=== PATIENT | female | born 1970 | race American Indian/Alaskan Native ===

== ENCOUNTER 2019-01-06 07:56 | Emergency (ER) | payer BC, OTHER ==
--- NOTE | 2019-01-06 08:31 | Emergency Department Report ---
ED General Adult HPI - General Chief complaint: Syncope Stated complaint: DIZZINESS,TINGLING IN HANDS AND FEET Time Seen by Provider: 01/06/19 08:15 Source: patient, family, EMS (ems notes not available at time of chart dictation), RN notes reviewed, old records reviewed Mode of arrival: Stretcher Limitations: No Limitations - History of Present Illness Initial comments: This is a 48-year-old female. The patient is not known to this provider previou heidi. The patient typically follows with the [facility]. She is not at this time. She has a history of anxiety, polyarthritis, hypertension. Also has a history of narcotic dependence and benzodiazepine dependence. Patient presents to the ER today with a complaint of generalized weakness, polyarthritis, myalgias, decreased appetite, anxiety, heart racing, malaise, fatigue, and unprovoked loss of consciousness today/syncope. Patient indicates no DVT or pulmonary embolism risk factors. She reports that she is not really eating or drinking that much. She landed on her face. Her symptoms are constant, does not radiate anywhere, increased with palpation and decreased with rest. Apparently, as per family, patient recently at [place] for polysubstance detox, and as per family, the patient terminated her elective/voluntary detox early. The patient is not homicidal or suicidal. She has no urinary symptoms. She has no abdominal pain, there is no chest pain, there is no sudden or thunderclap headache preceding the event. -: Gradual, Sudden Location: back, left, right, upper extremity, lower extremity Severity scale (0 -10): 0 Quality: aching Consistency: intermittent Improves with: rest Worsens with: movement - Related Data Home Medications Medication Instructions Recorded Confirmed Last Taken Cholecalciferol (Vitamin D3) 2,000 unit PO QDAY 01/06/19 01/06/19 01/05/19 00:00 [Vitamin D3 2,000 UNIT CHEW TAB] Folic Acid [Folvite] 1 mg PO QDAY 01/06/19 01/06/19 01/05/19 00:00 Olmesartan (Nf) [Benicar (Nf)] 20 mg PO QDAY 01/06/19 01/06/19 01/05/19 00:00 Sertraline [Zoloft] 25 mg PO QDAY 07/0501/06/19 01/05/19 00:00 busPIRone [Buspar] 15 mg PO TID 01/06/19 01/06/19 01/05/19 00:00 predniSONE [Deltasone] 5 mg PO QDAY 01/06/19 01/06/19 01/05/19 00:00 valACYclovir [Valtrex] 500 mg PO QDAY 01/06/19 01/06/19 01/05/19 00:00 Allergies Allergy/AdvReac Type Severity Reaction Status Date / Time acetaminophen Allergy Unknown Verified 01/06/19 09:44 [From Darvocet-N] ketorolac tromethamine Allergy Unknown Verified 01/06/19 09:44 [From Toradol] morphine Allergy Unknown Verified 01/06/19 09:44 propoxyphene napsylate Allergy Unknown Verified 01/06/19 09:44 [From Darvocet-N] ED Review of Systems ROS: Stated complaint: DIZZINESS,TINGLING IN HANDS AND FEET Other details as noted in HPI Constitutional: malaise, weakness Eyes: denies: eye discharge ENT: denies: epistaxis Respiratory: denies: cough Cardiovascular: palpitations, syncope Gastrointestinal: denies: vomiting Genitourinary: denies: dysuria Musculoskeletal: arthralgia, myalgia Skin: denies: lesions Neurological: weakness Psychiatric: anxiety ED Past Medical Hx - Past Medical History Previous Medical History?: Yes Hx Hypertension: Yes Hx Arthritis: Yes Hx Psychiatric Treatment: Yes (anxiety) - Surgical History Past Surgical History?: Yes Additional Surgical History: partial hysterectomyv - Social History Smoking Status: Never Smoker Substance Use Type: Alcohol, Prescribed - Medications Home Medications: Home Medications Medication Instructions Recorded Confirmed Last Taken Type Cholecalciferol (Vitamin D3) 2,000 unit PO QDAY 01/06/19 01/06/19 01/05/19 00:00 History [Vitamin D3 2,000 UNIT CHEW TAB] Folic Acid [Folvite] 1 mg PO QDAY 01/06/19 01/06/19 01/05/19 00:00 History Olmesartan (Nf) [Benicar (Nf)] 20 mg PO QDAY 01/06/19 01/06/19 01/05/19 00:00 History Sertraline [Zoloft] 25 mg PO QDAY 07/0501/06/19 01/05/19 00:00 History busPIRone [Buspar] 15 mg PO TID 01/06/19 01/06/19 01/05/19 00:00 History predniSONE [Deltasone] 5 mg PO QDAY 01/06/19 01/06/19 01/05/19 00:00 History valACYclovir [Valtrex] 500 mg PO QDAY 01/06/19 01/06/19 01/05/19 00:00 History ED Physical Exam - General Limitations: No Limitations General appearance: alert, anxious - Head Head exam: Present: normocephalic, other (there is right forehead ecchymosis. There is right-sided supraorbital ecchymosis.) - Eye Eye exam: Present: normal appearance, PERRL, EOMI, other (visual acuity intact to finger counting, color perception, reading at a close distance). Absent: nystagmus - ENT ENT exam: Present: normal exam, normal orophraynx, mucous membranes moist, TM's normal bilaterally, normal external ear exam - Neck Neck exam: Present: normal inspection, full ROM. Absent: tenderness, meningismus - Respiratory Respiratory exam: Present: normal lung sounds bilaterally. Absent: respiratory distress - Cardiovascular Cardiovascular Exam: Present: regular rate, normal rhythm, normal heart sounds. Absent: bradycardia, tachycardia, irregular rhythm, systolic murmur, diastolic murmur, rubs, gallop - GI/Abdominal GI/Abdominal exam: Present: soft. Absent: distended, tenderness, guarding, rebound, rigid, pulsatile mass - Extremities Exam Extremities exam: Present: normal inspection, full ROM, other (2+ pulses noted in the bilateral upper, lower extremities. Compartments soft. No long bony tenderness. The pelvis is stable.). Absent: pedal edema, calf tenderness - Back Exam Back exam: Present: normal inspection, full ROM. Absent: CVA tenderness (R), CVA tenderness (L), paraspinal tenderness, vertebral tenderness - Neurological Exam Neurological exam: Present: alert, oriented X3, normal gait, other (Extraocular movements intact. Tongue midline. No facial droop. Facial sensation intact to light touch in the V1, V2, V3 distribution bilaterally. 5 and 5 strength in 4 extremities.. Sensation is intact to light touch in 4 extremities.). Absent: motor sensory deficit - Psychiatric Psychiatric exam: Present: anxious - Skin Skin exam: Present: warm, ecchymosis ED Course Vital Signs 01/06/19 01/06/19 01/06/19 07:58 08:00 08:14 Temperature 98.7 F Pulse Rate 83 81 Respiratory 15 15 15 Rate Blood Pressure 149/92 149/92 O2 Sat by Pulse 99 100 99 Oximetry 01/06/19 09:00 Temperature Pulse Rate 83 Respiratory 10 L Rate Blood Pressure 129/76 O2 Sat by Pulse 97 Oximetry - Reevaluation(s) Reevaluation #1: 01/06/19 08:31 ga dining room attendant cafeteria aware Filled ID Written Drug QTY Days Prescriber Rx # Pharmacy * Refills Daily Dose Pymt Type [facility] 11/14/2018 2 09/13/2018 CLONAZEPAM 0.5 MG TABLET 30.0 30 DEVI THO [id number] [facility] ([id number]) 2 [facility] [place] 10/13/2018 2 09/13/2018 CLONAZEPAM 0.5 MG TABLET 30.0 30 DEVI THO [phone] [facility] ([id number]) 1 [facility] [place] 09/13/2018 2 09/13/2018 CLONAZEPAM 0.5 MG TABLET 30.0 30 DEVI THO [id number] [facility] ([id number]) 0 [facility] [place] 08/22/2018 1 08/22/2018 HYDROCODONE-ACETAMIN 10-325 MG 60.0 30 ME ЕКАТЕРИНА [id number] [facility] ([id number]) 0 20.0 MME [facility] [place] 08/11/2018 1 08/11/2018 CLONAZEPAM 0.5 MG TABLET 15.0 15 [place] MAT [id number] [facility] ([id number]) 0 [facility] [place] 07/20/2018 1 07/20/2018 HYDROCODONE-ACETAMIN 10-325 MG 60.0 30 ME ЕКАТЕРИНА [id number] [facility] ([id number]) 0 20.0 MME [facility] [place] 07/12/2018 1 06/15/2018 CLONAZEPAM 1 MG TABLET 30.0 30 DW OWE [id number] [facility] ([id number]) 0 [facility] [place] 06/24/2018 2 06/24/2018 BELBUCA 150 MCG FILM 60.0 30 [place] GAR [id number] [facility] [place] ([id number]) 0 0.3 mg Comm Ins 06/24/2018 2 06/24/2018 HYDROCODONE-ACETAMIN 10-325 MG 60.0 30 [place] GAR [id number] [facility] [place] ([id number]) 0 20.0 MME Comm Ins [place] ED Medical Decision Making - Lab Data Result diagrams: 01/06/19 08:16 01/06/19 08:16 Vital Signs 01/06/19 01/06/19 01/06/19 07:58 08:00 08:14 Temperature 98.7 F Pulse Rate 83 81 Respiratory 15 15 15 Rate Blood Pressure 149/92 149/92 O2 Sat by Pulse 99 100 99 Oximetry 01/06/19 09:00 Temperature Pulse Rate 83 Respiratory 10 L Rate Blood Pressure 129/76 O2 Sat by Pulse 97 Oximetry Lab Results 01/06/19 01/06/19 01/06/19 Range/Units 08:16 08:16 08:16 WBC 10.3 (4.5-11.0) K/mm3 RBC 4.19 (3.65-5.03) M/mm3 Hgb 13.6 (10.1-14.3) gm/dl Hct 39.7 (30.3-42.9) % MCV 95 (79-97) fl MCH 32 (28-32) pg MCHC 34 (30-34) % RDW 13.0 L (13.2-15.2) % Plt Count 256 (140-440) K/mm3 Lymph % (Auto) 15.4 (13.4-35.0) % [place] % (Auto) 10.3 H (0.0-7.3) % Eos % (Auto) 0.1 (0.0-4.3) % Baso % (Auto) 0.7 (0.0-1.8) % Lymph # 1.6 (1.2-5.4) K/mm3 [place] # 1.1 H (0.0-0.8) K/mm3 Eos # 0.0 (0.0-0.4) K/mm3 Baso # 0.1 (0.0-0.1) K/mm3 Seg Neutrophils % 73.5 H (40.0-70.0) % Seg Neutrophils # 7.6 (1.8-7.7) K/mm3 PT 12.7 (12.2-14.9) Sec. INR 0.98 (0.87-1.13) APTT 22.5 L (24.2-36.6) Sec. Sodium 142 (137-145) mmol/L Potassium 3.4 L (3.6-5.0) mmol/L Chloride 102.2 (98-107) mmol/L Carbon Dioxide 26 (22-30) mmol/L Anion Gap 17 mmol/L BUN 7 (7-17) mg/dL Creatinine 1.0 (0.7-1.2) mg/dL Estimated GFR > 60 ml/min BUN/Creatinine Ratio 7 % Glucose 93 (65-100) mg/dL Calcium 9.7 (8.4-10.2) mg/dL Magnesium 2.20 (1.7-2.3) mg/dL TSH (0.270-4.200) mlU/mL Salicylates (2.8-20.0) mg/dL Acetaminophen (10.0-30.0) ug/mL Plasma/Serum Alcohol (0-0.07) % 01/06/19 01/06/19 01/06/19 Range/Units 08:16 09:55 09:55 WBC (4.5-11.0) K/mm3 RBC (3.65-5.03) M/mm3 Hgb (10.1-14.3) gm/dl Hct (30.3-42.9) % MCV (79-97) fl MCH (28-32) pg MCHC (30-34) % RDW (13.2-15.2) % Plt Count (140-440) K/mm3 Lymph % (Auto) (13.4-35.0) % [place] % (Auto) (0.0-7.3) % Eos % (Auto) (0.0-4.3) % Baso % (Auto) (0.0-1.8) % Lymph # (1.2-5.4) K/mm3 [place] # (0.0-0.8) K/mm3 Eos # (0.0-0.4) K/mm3 Baso # (0.0-0.1) K/mm3 Seg Neutrophils % (40.0-70.0) % Seg Neutrophils # (1.8-7.7) K/mm3 PT (12.2-14.9) Sec. INR (0.87-1.13) APTT (24.2-36.6) Sec. Sodium (137-145) mmol/L Potassium (3.6-5.0) mmol/L Chloride (98-107) mmol/L Carbon Dioxide (22-30) mmol/L Anion Gap mmol/L BUN (7-17) mg/dL Creatinine (0.7-1.2) mg/dL Estimated GFR ml/min BUN/Creatinine Ratio % Glucose (65-100) mg/dL Calcium (8.4-10.2) mg/dL Magnesium (1.7-2.3) mg/dL TSH 2.540 (0.270-4.200) mlU/mL Salicylates 0.4 L (2.8-20.0) mg/dL Acetaminophen < 5.0 L (10.0-30.0) ug/mL Plasma/Serum Alcohol (0-0.07) % 01/06/19 Range/Units 09:55 WBC (4.5-11.0) K/mm3 RBC (3.65-5.03) M/mm3 Hgb (10.1-14.3) gm/dl Hct (30.3-42.9) % MCV (79-97) fl MCH (28-32) pg MCHC (30-34) % RDW (13.2-15.2) % Plt Count (140-440) K/mm3 Lymph % (Auto) (13.4-35.0) % [place] % (Auto) (0.0-7.3) % Eos % (Auto) (0.0-4.3) % Baso % (Auto) (0.0-1.8) % Lymph # (1.2-5.4) K/mm3 [place] # (0.0-0.8) K/mm3 Eos # (0.0-0.4) K/mm3 Baso # (0.0-0.1) K/mm3 Seg Neutrophils % (40.0-70.0) % Seg Neutrophils # (1.8-7.7) K/mm3 PT (12.2-14.9) Sec. INR (0.87-1.13) APTT (24.2-36.6) Sec. Sodium (137-145) mmol/L Potassium (3.6-5.0) mmol/L Chloride (98-107) mmol/L Carbon Dioxide (22-30) mmol/L Anion Gap mmol/L BUN (7-17) mg/dL Creatinine (0.7-1.2) mg/dL Estimated GFR ml/min BUN/Creatinine Ratio % Glucose (65-100) mg/dL Calcium (8.4-10.2) mg/dL Magnesium (1.7-2.3) mg/dL TSH (0.270-4.200) mlU/mL Salicylates (2.8-20.0) mg/dL Acetaminophen (10.0-30.0) ug/mL Plasma/Serum Alcohol < 0.01 (0-0.07) % - EKG Data -: EKG Interpreted by Ks EKG shows normal: sinus rhythm Rate: normal - EKG Data When compared to previous EKG there are: previous EKG unavailable 01/06/19 11:05 EKG #1 shows a sinus rhythm, 84 bpm, low voltage, QTC 466 ms, motion artifact, this is an abnormal EKG, EKG is not consistent with an ST elevation myocardial infarction, EKG #2 shows sinus, 83 bpm, borderline leftward axis, low voltage, QTC prolonged, not having chest pain, the EKG is not consistent with ST elevation myocardial infarction. - Radiology Data Radiology results: pending, report reviewed, image reviewed Noncontrast CT scan of the brain, cervical spine, facial bones negative for acute disease. - Medical Decision Making Differential diagnosis, including not limited to: Orthostasis, vagal event, structural cardiac disease, intracranial injury, cervical spine injury, facial injury, anxiety, polysubstance dependence Assessment and plan: 48-year-old female with anxiety, history of polysubstance dependence, with unprovoked episode of syncope, likely orthostasis/vagal in the context of poor oral intake. There are no DVT or pulmonary embolism risk factors, and the patient is low risk by well's criteria. Screening laboratory studies reviewed and are appreciated. Potassium is repleted. No evidence of significant traumatic injury based off of physical exam, or objective CT scan of the face, brain, cervical spine. Patient is observed in this department for a few hours, without recurrent syncopal event. No arrhythmias have been noted. Contacted the [facility], discussed with their physician coordinator, Dr. Fernandez, who will arrange for the patient to have outpatient follow-up. Patient is counseled to not drive or operate motor vehicles until cleared by her primary care doctor or cardiology. Unfortunately, she is allergic to multiple medications, given her history, and her presenting physical examination, it is my opinion that narcotic therapy is not indicated or appropriate at this time. For similar reasons, I would not consider ketamine for pain control appropriate, and given history of probable dehydration, intravenous lidocaine not appropriate at this point in time. Nevertheless, the patient does not appear to have an emergent medical condition at this time, and her primary care group is going to follow her up closely. Critical care attestation.: If time is entered above; I have spent that time in minutes in the direct care of this critically ill patient, excluding procedure time. ED Disposition Clinical Impression: History of syncope, Poor appetite, Polyarthritis Disposition: TO HOME OR SELFCARE Is pt being admited?: No Does the pt Need Aspirin: No Condition: Good Additional Instructions: Do not drive or operate motor vehicles for the next 6 months, or until cleared by your primary care doctor or vp purchasing. Continue current outpatient medications. Avoid consumption of sedating medications, including opioids, Xanax, clonazepam, and benzodiazepines. Follow-up with your primary care doctor within the next 7-10 days. [facility] will contact the patient with an outpatient cardiology follow-up. Advance diet as tolerated, drink 4-6 cups of water per day, as needed, and eat at least 3-5 meals per day. Return to the emergency room right away with new, worsening or different symptoms not present on the initial emergency room evaluation. Referrals: HAILEY GRULLON MD [Primary Care Provider] - 3-5 Days
[2019-01-06 08:42] LABS: Basophils # (Auto) 0.1 K/mm3 (0.0-0.1); Basophils % (Auto) 0.7 % (0.0-1.8); Eosinophils % (Auto) 0.1 % (0.0-4.3); Hematocrit 39.7 % (30.3-42.9); Hemoglobin 13.6 gm/dl (10.1-14.3); Lymphocytes # (Auto) 1.6 K/mm3 (1.2-5.4); Lymphocytes % (Auto) 15.4 % (13.4-35.0); Mean Corpuscular HGB Conc 34 % (30-34); Mean Corpuscular Volume 95 fl (79-97); Monocytes # (Auto) 1.1 K/mm3 (0.0-0.8); Monocytes % (Auto) 10.3 % (0.0-7.3); Platelet Count 256 K/mm3 (140-440); Red Blood Count 4.19 M/mm3 (3.65-5.03)
[2019-01-06 08:52] LABS: BUN/Creatinine Ratio 7; Blood Urea Nitrogen 7 mg/dL (7-17); Calcium 9.7 mg/dL (8.4-10.2); Hemolysis Index 7; INR 0.98 (0.87-1.13); Partial Thromboplastin Time 22.5 Sec. (24.2-36.6)
--- NOTE | 2019-01-06 09:15 | Cat Scan Report ---
CT head without contrast INDICATION : Headache and syncope.. TECHNIQUE: Axial imaging performed from the skull apex through the skull base without the use of con trast. COMPARISON: None FINDINGS: Parenchyma: No acute intracranial hemorrhage or parenchymal abnormality. Ventricles: Ventricles are normal in size and appear symmetric. Soft tissues: Soft tissues including the orbits appear normal. Bones: No acute osseous abnormality. Sinuses: Sinuses and mastoid air cells are clear. IMPRESSION: No acute abnormality. Signer Name: Micah Brennan MD Signed: 01/06/2019 9:10 AM Workstation Name: [id number]
--- NOTE | 2019-01-06 09:23 | Cat Scan Report ---
CT FACIAL BONES HISTORY: Pain. Syncope. COMPARISON: None. TECHNIQUE: Axial images of the face were obtained. Coronal and sagittal reformats were generated. CONTRAST: None. FINDINGS: Facial bones: No fracture or other significant abnormality. Paranasal sinuses: Clear. Orbits: No significant abnormality. Visualized images of the intracranial space: No significant abnormality. Additional findings: None. IMPRESSION: Normal. . Signer Name: Micah Brennan MD Signed: 01/06/2019 9:19 AM Workstation Name: [id number]
--- NOTE | 2019-01-06 09:24 | Cat Scan Report ---
CT cervical spine without contrast INDICATION: Posterior neck pain for one day, right shoulder pain, headache, syncope. TECHNIQUE: Axial imaging performed through the cervical without the use of contrast. Sagittal and c oronal reconstructed images were also reviewed. All CT scans at this location are performed using CT dose reduction for ALARA by means of automated exposure control. COMPARISON: None FINDINGS: Alignment: Spinal alignment is normal. Bones: There is no acute osseous abnormality. No significant degenerative disc disease or facet art hropathy. No suspicious bony lesion. Soft tissues: No acute or significant incidental soft tissue abnormality. IMPRESSION: No acute abnormality. Signer Name: Zeeshan Patel Jr, MD Signed: 01/06/2019 9:20 AM Workstation Name: [id number]
[2019-01-06] MEDS ORDERED: NACL 0.9% 1000 ML 2,000 ML IV ONE (09:32)
[2019-01-06] MEDS ORDERED: K-DUR PO ONE (09:33)
[2019-01-06 11:17] VITALS: BP 135/83
== END 2019-01-06 14:06 | disposition home or self-care (01) ==
LOC: ED 07:56
DX: M13.0 Polyarthritis, unspecified (principal); R55 Syncope and collapse; R63.0 Anorexia; I10 Essential (primary) hypertension; F41.9 Anxiety disorder, unspecified
CPT/HCPCS: 36415; 70450; 70486; 72125; 80048; 83735; 84443; 85025; 85610; 85730; 93005; 93010; 96360; 96361; 99285; G0480; J7030; 80320